=== PATIENT | female | born 2000 | race Caucasian/White ===

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

== ENCOUNTER 2022-01-05 13:58 | Emergency (ER) | payer BC ==
[~2022-01-05] VITALS: Ht 162.5 cm; Wt 44.2 kg
[2022-01-05] MEDS ORDERED: NS IV 1000 ML 1,000 ML IV STA (14:05)
[2022-01-05] MEDS ORDERED: diphenhydrAMINE 50 MG/ML INJ (BENADRYL) IV STA (14:05)
--- NOTE | 2022-01-05 14:11 | ED General ---
General Chief Complaint: Allergic Reaction Stated Complaint: WASP STING DIZZY/SOA History of Present Illness Date Seen by Provider: Jan 05, 2022 Time Seen by Provider: 14:07 Initial Comments 21-year-old female was concerned about allergic reaction. Patient reports that 1520 minutes prior to arrival she got bit by a wasp on the posterior aspect of her right knee. Patient is concerned because her mom is allergic to wasp. She feels like she is a little dizzy short of breath very anxious about it. Patient does not have a localized reaction where the sting was. Maybe some mild nausea. Allergies and Home Medications Allergies Coded Allergies: No Known Drug Allergies (Unverified , 02/04/21) Patient Home Medication List Home Medication List Reviewed: Yes Metoprolol Succinate (Metoprolol Succinate) 25 Mg Tab.er.24h, 25 MG PO DAILY Prescribed by: BRITTANY JURADO on 02/04/21 9614 Review of Systems Review of Systems Constitutional: No chills; dizziness; No fever EENTM: see HPI Respiratory: see HPI Cardiovascular: no symptoms reported Gastrointestinal: No abdominal pain; nausea; No vomiting Musculoskeletal: no symptoms reported Skin: see HPI Psychiatric/Neurological: No Symptoms Reported Past Ehofhps-Rvezes-Mhcvaq Hx Past Medical History Surgeries: No Cardiac: Yes Irregular Heartbeat, Palpitations Neurological: No Physical Exam Vital Signs Vital Signs - First Documented 01/05/22 14:05 Temp 36.1 Pulse 107 Resp 18 B/P (MAP) 144/63 (90) Pulse Ox 97 O2 Delivery Room Air Capillary Refill : Height, Weight, BMI Height: '" Weight: lbs. oz. kg; 16.00 BMI Method: General Appearance: No Apparent Distress, Anxious HEENT: PERRL/EOMI, Pharynx Normal, Moist Mucous Membranes Neck: Non Tender Respiratory: Lungs Clear, Normal Breath Sounds, No Accessory Muscle Use, No Respiratory Distress; No Decreased Breath Sounds, No Wheezing Cardiovascular: Regular Rate, Rhythm, No Edema Gastrointestinal: Non Tender, Soft Extremity: Normal Capillary Refill, Normal Inspection, Normal Range of Motion Neurologic/Psychiatric: Alert, Oriented x3, No Motor/Sensory Deficits, Normal Mood/Affect, instructional aide II-XII Norm as Tested Skin: Normal Color, Warm/Dry, Other (Small bite/sting on posterior right knee but no localized reaction noted) Progress/Results/Core Measures Suspected Sepsis SIRS Temperature: Pulse: Respiratory Rate: Blood Pressure / Mean: Results/Orders My Orders Orders - AMINTA LONDON DO Ns Iv 1000 Ml (Sodium Chloride 0.9%) (01/05/22 14:05) Ed Iv/Invasive Line Start (01/05/22 14:05) Diphenhydramine Injection (Benadryl Inje (01/05/22 14:05) Dexamethasone Injection (Decadron Inje (01/05/22 14:15) Medications Given in ED Current Medications Medications Dose Ordered Sig/Sunni Route Start Time Stop Time Status Last Admin Dose Admin Dexamethasone Sodium Phosphate 10 mg ONCE ONCE IV 01/05/22 14:15 01/05/22 14:16 DC 01/05/22 14:12 10 MG Vital Signs/I&O 01/05/22 14:05 Temp 36.1 Pulse 107 Resp 18 B/P (MAP) 144/63 (90) Pulse Ox 97 O2 Delivery Room Air Capillary Refill : Progress Note : Progress Note Patient's symptoms are much more consistent with mild anxiety and hyperventilation than actual anaphylactic reaction. I did however give her Benadryl IV fluids and steroid as a precaution. Patient was monitored with no reaction. Patient reports that she is ready be discharged home. I have recommended patient be watched for additional 30 to 45 minutes prior to when she requested discharge. However she feels like she is okay to be discharged home and I will discharge her as requested. Departure Impression Primary Impression: Sting from hornet, wasp, or bee Qualified Codes: T63.451A - Toxic effect of venom of hornets, accidental (unintentional), initial encounter; T63.441A - Toxic effect of venom of bees, accidental (unintentional), initial encounter; T63.461A - Toxic effect of venom of wasps, accidental (unintentional), initial encounter Disposition: 01 HOME, SELF-CARE Condition: Stable Departure-Patient Inst. Referrals: YADIRA MERCADO MD (PCP/Family) Primary Care Physician Patient Instructions: Insect Bites and Stings Add. Discharge Instructions: Benadryl as needed for any itching, rash Return to the ER with any throat swelling, repeated nausea and vomiting or any other concerns. All discharge instructions reviewed with patient and/or family. Voiced understanding. AMINTA LONDON DO Jan 05, 2022 14:11
[2022-01-05 14:53] VITALS: BP 145/57
== END 2022-01-05 14:53 | disposition home or self-care (01) ==
LOC: EDUNIT# 13:58 → ER FS 14:00
DX: T63.451A Toxic effect of venom of hornets, accidental (unintentional), initial encounter (principal); T63.461A Toxic effect of venom of wasps, accidental (unintentional), initial encounter; T63.441A Toxic effect of venom of bees, accidental (unintentional), initial encounter; Z28.310 Unvaccinated for COVID-19

== ENCOUNTER → 2022-01-15 | Outpatient (CLI) | payer BC ==
[2022-01-15 10:48] LABS: BASOPHILS # (AUTO) 0.1 10^3/uL (0.0-0.1); BASOPHILS % (AUTO) 1 % (0-10); EOSINOPHILS # (AUTO) 0.1 10^3/uL (0.0-0.3); EOSINOPHILS % (AUTO) 2 % (0-10); HEMATOCRIT 35 % (35-52); HEMOGLOBIN 12.1 g/dL (11.5-16.0); LYMPHOCYTES # (AUTO) 1.9 10^3/uL (1.0-4.0); LYMPHOCYTES % (AUTO) 35 % (12-44); MEAN CORPUSCULAR HEMOGLOBIN 31 pg (25-34); MEAN CORPUSCULAR HGB CONC 35 g/dL (32-36); MEAN CORPUSCULAR VOLUME 89 fL (80-99); MEAN PLATELET VOLUME 10.9 fL (9.0-12.2); MONOCYTES # (AUTO) 0.7 10^3/uL (0.0-1.0); MONOCYTES % (AUTO) 13 % (0-12); NEUTROPHILS # (AUTO) 2.7 10^3/uL (1.8-7.8); NEUTROPHILS % (AUTO) 50 % (42-75); PLATELET COUNT 158 10^3/uL (130-400); WHITE BLOOD COUNT 5.4 10^3/uL (4.3-11.0)
[2022-01-15 11:53] LABS: ALBUMIN 4.4 GM/DL (3.2-4.5); BILIRUBIN,TOTAL 0.9 MG/DL (0.1-1.0); CALCIUM 9.3 MG/DL (8.5-10.1); CREATININE SERUM 0.78 MG/DL (0.60-1.30); POTASSIUM 4.2 MMOL/L (3.6-5.0); TOTAL PROTEIN 7.3 GM/DL (6.4-8.2)
== END ==
LOC: LAB FS 10:33
PROVIDERS: ATTEND Registered Nurse Emergency
DX: R10.9 Unspecified abdominal pain (principal)
CPT/HCPCS: 36415; 80053; 83690; 85025

== ENCOUNTER → 2022-01-15 | Outpatient (CLI) | payer BC | LOC: LABNPT 14:50 | PROVIDERS: ATTEND Registered Nurse Emergency | DX: N39.0 Urinary tract infection, site not specified (principal) | CPT/HCPCS: 87088 ==

== ENCOUNTER → 2022-03-14 | Outpatient (CLI) | payer BC, OTHER ==
[2022-03-14 11:54] LABS: BASOPHILS % (AUTO) 1 % (0-10); EOSINOPHILS # (AUTO) 0.1 10^3/uL (0.0-0.3); EOSINOPHILS % (AUTO) 2 % (0-10); HEMATOCRIT 36 % (35-52); HEMOGLOBIN 12.6 g/dL (11.5-16.0); LYMPHOCYTES # (AUTO) 1.3 10^3/uL (1.0-4.0); LYMPHOCYTES % (AUTO) 32 % (12-44); MEAN CORPUSCULAR HEMOGLOBIN 32 pg (25-34); MEAN CORPUSCULAR HGB CONC 35 g/dL (32-36); MEAN CORPUSCULAR VOLUME 90 fL (80-99); MONOCYTES # (AUTO) 0.5 10^3/uL (0.0-1.0); MONOCYTES % (AUTO) 12 % (0-12); NEUTROPHILS # (AUTO) 2.2 10^3/uL (1.8-7.8); NEUTROPHILS % (AUTO) 54 % (42-75); PLATELET COUNT 141 10^3/uL (130-400); WHITE BLOOD COUNT 4.1 10^3/uL (4.3-11.0)
[2022-03-14 12:21] LABS: ERYTHROCYTE SEDIMENTATION RATE 10 MM/HR (0-20)
[2022-03-14 12:22] LABS: ALANINE AMINOTRANSFERASE 6 U/L (0-55); ALBUMIN 4.6 GM/DL (3.2-4.5); ALKALINE PHOSPHATASE 51 U/L (40-136); BILIRUBIN,TOTAL 0.8 MG/DL (0.1-1.0); BUN/CREATININE RATIO 11; CALCIUM 9.5 MG/DL (8.5-10.1); CARBON DIOXIDE 21 MMOL/L (21-32); CHLORIDE 106 MMOL/L (98-107); CREATININE SERUM 0.74 MG/DL (0.60-1.30); GFR ESTIMATED 119; GLUCOSE 81 MG/DL (70-105); POTASSIUM 4.3 MMOL/L (3.6-5.0); SODIUM 139 MMOL/L (135-145); TOTAL PROTEIN 7.9 GM/DL (6.4-8.2)
[2022-03-14 15:26] LABS: FREE T4 (FREE THYROXINE) 1.04 NG/DL (0.70-1.48)
== END ==
LOC: LAB FS 10:42
PROVIDERS: ATTEND Registered Nurse Emergency
DX: N96 Recurrent pregnancy loss (principal); G44.52 New daily persistent headache (NDPH); E55.9 Vitamin D deficiency, unspecified; R53.83 Other fatigue; R00.2 Palpitations
CPT/HCPCS: 36415; 80053; 82306; 82607; 84439; 84443; 85025; 85610; 85652; 85705; 85730; 86038; 86039; 86147; 86200

== ENCOUNTER → 2022-03-24 | Outpatient (CLI) | payer BC, OTHER ==
--- NOTE | 2022-03-24 09:34 | Diagnostic Imaging Report ---
PROCEDURE: MR imaging of the brain without contrast. TECHNIQUE: Multiplanar, multisequence MR imaging of the brain was performed without contrast. INDICATION: Hearing and vision loss. COMPARISON: None. FINDINGS: No abnormal intracranial signal. No restricted water diffusion. No hemosiderin deposition or evidence of intracranial hemorrhage. Normal morphology including the major midline structures, sella, posterior fossa and cerebellar pontine angle. Normal intracranial flow voids. No hydrocephalus or extra-axial fluid collections. The orbits are negative. Paranasal sinuses and mastoids are clear. Normal bone marrow signal. IMPRESSION: Normal MRI of the brain without contrast. No acute findings. Dictated by: Dictated on workstation # [id number]
== END ==
LOC: RAD 07:36
PROVIDERS: ATTEND Registered Nurse Emergency
DX: R00.2 Palpitations (principal); G44.52 New daily persistent headache (NDPH); H91.90 Unspecified hearing loss, unspecified ear; H54.7 Unspecified visual loss
CPT/HCPCS: 70551; C8929; 93306

== ENCOUNTER → 2022-04-07 | Outpatient (CLI) | payer BC, OTHER ==
[~2022-04-07] MED LIST changes: +CATHETER FLUSH 10 ML SYR IVP PRN
--- NOTE | 2022-04-07 14:55 | Diagnostic Imaging Report ---
INDICATION: Unspecified abdominal pain. EXAMINATION: HIDA scan 04/07/2022 FINDINGS: After uneventful administration of 5.43 mCi of technetium mebrofenin intravenously, subsequent imaging is performed. There is prompt homogeneous uptake throughout the liver. Gallbladder and small bowel seen within less than 60 minutes. Subsequently administration of 8 ounces of Ensure administered orally with continued imaging performed. Ejection fraction is calculated at 28.5%. IMPRESSION: 1. No obstructive process. 2. Low ejection fraction of 28.5% suggestive of gallbladder dyskinesia versus chronic cholecystitis. Correlate with patient's symptoms. Dictated by: Dictated on workstation # [id number]
== END ==
LOC: CARD 09:21
PROVIDERS: ATTEND Registered Nurse Emergency
DX: R10.9 Unspecified abdominal pain (principal)
CPT/HCPCS: 78227; A9537

== ENCOUNTER 2022-04-24 21:19 | Emergency (ER) | payer BC, OTHER ==
[~2022-04-24] VITALS: Ht 162.5 cm; Wt 43.3 kg
[~2022-04-24 21:19] MED LIST changes: -CATHETER FLUSH 10 ML SYR IVP PRN
[2022-04-24] MEDS ORDERED: PANTOPRAZOLE 40 MG (PROTONIX) VIAL IV STA (21:36)
[2022-04-24] MEDS ORDERED: fentaNYL INJ 100 MCG/2 ML AMP IVP STA (21:36)
[2022-04-24] MEDS ORDERED: KETOROLAC 15 MG/ML VIAL IVP STA (21:36)
[2022-04-24] MEDS ORDERED: NS IV 1000 ML 1,000 ML IV STA (21:36)
[2022-04-24 21:42] LABS: BASOPHILS % (AUTO) 1 % (0-10); EOSINOPHILS # (AUTO) 0.1 10^3/uL (0.0-0.3); EOSINOPHILS % (AUTO) 2 % (0-10); HEMATOCRIT 34 % (35-52); HEMOGLOBIN 11.7 g/dL (11.5-16.0); LYMPHOCYTES # (AUTO) 1.7 10^3/uL (1.0-4.0); LYMPHOCYTES % (AUTO) 36 % (12-44); MEAN CORPUSCULAR HEMOGLOBIN 31 pg (25-34); MEAN CORPUSCULAR HGB CONC 35 g/dL (32-36); MEAN CORPUSCULAR VOLUME 89 fL (80-99); MEAN PLATELET VOLUME 10.7 fL (9.0-12.2); MONOCYTES # (AUTO) 0.6 10^3/uL (0.0-1.0); MONOCYTES % (AUTO) 12 % (0-12); NEUTROPHILS # (AUTO) 2.4 10^3/uL (1.8-7.8); NEUTROPHILS % (AUTO) 50 % (42-75); PLATELET COUNT 142 10^3/uL (130-400); WHITE BLOOD COUNT 4.8 10^3/uL (4.3-11.0)
[2022-04-24] MEDS ORDERED: CATHETER FLUSH 10 ML SYR IV PRN (21:45)
[2022-04-24] MEDS ORDERED: HOLD METFORMIN - RECEIVED CONTRAST 20 ML VIAL IV SCH (21:45)
[2022-04-24] MEDS ORDERED: IOHEXOL 350 MG/ML 100 ML (OMNIPAQUE 350) VIAL IV ONE (21:45)
[2022-04-24] MEDS ORDERED: NS 100 ML (IVPB) BAG IV ONE (21:45)
--- NOTE | 2022-04-24 21:54 | ED Abdominal Pain ---
General Chief Complaint: Abdominal/GI Problems Stated Complaint: PAIN AT SURGERY SITE Source of Information: Patient, Family History of Present Illness Date Seen by Provider: Apr 24, 2022 Time Seen by Provider: 21:23 Initial Comments 21-year-old female presenting with complaints of abdominal pain around the periumbilical surgery site. She is 2 days postop from laparoscopic cholecystectomy done at [facility]. She has had some mild intermittent nausea. She has not had a bowel movement since surgery. She has been taking Percocet for pain. She had eaten about 20 to 30 minutes prior to the onset of pain. She denies having fever, chills, drainage from incision sites, vomiting, chest pain, pain with urination. She did not take any of her pain medicine prior to coming to the emergency department. Her abdominal pain started approximately 30 minutes prior to arrival in the ED. Timing/Duration: 1/2 Hour Severity/Quality: Severe Location: Periumbilical Radiation: No Radiation Activities at Onset: Other (Has just eaten about 20 minutes prior to onset of pain) Modifying Factors: Worsens With Eating Associated Symptoms: No Back Pain, No Chest Pain, No Diaphoresis, No Fever/Chills; Fatigue; No Headache, No Heartburn; Nausea/Vomiting (Nausea but no vomiting); No Rash, No Shortness of Air, No Swelling/Mass in Abdomen, No Syncope, No Weakness Allergies and Home Medications Allergies Coded Allergies: No Known Drug Allergies (Unverified , 02/04/21) Patient Home Medication List Home Medication List Reviewed: Yes Metoprolol Succinate (Metoprolol Succinate) 25 Mg Tab.er.24h, 25 MG PO DAILY Prescribed by: BRITTANY JURADO on 02/04/21 [id number] Review of Systems Review of Systems Constitutional: No chills, No fever EENTM: No Symptoms Reported Respiratory: No Symptoms Reported Cardiovascular: No Symptoms Reported Gastrointestinal: See HPI Genitourinary: No Symptoms Reported Musculoskeletal: no symptoms reported Skin: other (Laparoscopic cholecystectomy surgery sites are intact with glue in place and no erythema or drainage or fluctuance or induration to indicate infection) Psychiatric/Neurological: Anxiety Endocrine: No Symptoms Reported Hematologic/Lymphatic: No Symptoms Reported Past Ojretnc-Qortgg-Jtvbye Hx Patient Social History Tobacco Use?: No Use of E-Cig and/or Vaping dev: No Substance use?: No Alcohol Use?: No Past Medical History Surgery/Hospitalization HX: None Surgeries: Yes Gallbladder (Laparoscopic cholecystectomy April 22, 2022) Cardiac: Yes Irregular Heartbeat, Palpitations Neurological: No Physical Exam Vital Signs Vital Signs - First Documented 04/24/22 21:25 Temp 36.4 Pulse 101 Resp 16 B/P (MAP) 136/83 (100) Pulse Ox 99 O2 Delivery Room Air Capillary Refill : Height/Weight/BMI Height: '" Weight: lbs. oz. kg; 16.00 BMI Method: General Appearance: moderate distress HEENT: PERRL/EOMI, pharynx normal Neck: non-tender, full range of motion, supple, normal inspection Respiratory: chest non-tender, lungs clear, normal breath sounds, no respiratory distress, no accessory muscle use Cardiovascular: normal peripheral pulses, regular rate, rhythm Gastrointestinal: soft, no pulsatile mass; No abnormal bowel sounds (hypoactive bowel sounds), No distended; guarding; No rebound; tenderness (periumbilical and around each lap ana lilia incision site) Rectal: deferred Extremities: normal range of motion, non-tender, normal capillary refill Neurologic/Psychiatric: alert, oriented x 3, other (anxious) Skin: normal color, warm/dry Progress/Results/Core Measures Results/Orders Lab Results Laboratory Tests Test 04/24/22 21:40 04/24/22 23:15 Range/Units White Blood Count 4.8 4.3-11.0 10^3/uL Red Blood Count 3.75 L 3.80-5.11 10^6/uL Hemoglobin 11.7 11.5-16.0 g/dL Hematocrit 34 L 35-52 % Mean Corpuscular Volume 89 80-99 fL Mean Corpuscular Hemoglobin 31 25-34 pg Mean Corpuscular Hemoglobin Concent 35 32-36 g/dL Red Cell Distribution Width 11.9 10.0-14.5 % Platelet Count 142 130-400 10^3/uL Mean Platelet Volume 10.7 9.0-12.2 fL Immature Granulocyte % (Auto) 0 % Neutrophils (%) (Auto) 50 42-75 % Lymphocytes (%) (Auto) 36 12-44 % Monocytes (%) (Auto) 12 0-12 % Eosinophils (%) (Auto) 2 0-10 % Basophils (%) (Auto) 1 0-10 % Neutrophils # (Auto) 2.4 1.8-7.8 10^3/uL Lymphocytes # (Auto) 1.7 1.0-4.0 10^3/uL Monocytes # (Auto) 0.6 0.0-1.0 10^3/uL Eosinophils # (Auto) 0.1 0.0-0.3 10^3/uL Basophils # (Auto) 0.0 0.0-0.1 10^3/uL Immature Granulocyte # (Auto) 0.0 0.0-0.1 10^3/uL Sodium Level 138 135-145 MMOL/L Potassium Level 3.5 L 3.6-5.0 MMOL/L Chloride Level 105 98-107 MMOL/L Carbon Dioxide Level 22 21-32 MMOL/L Anion Gap 11 5-14 MMOL/L Blood Urea Nitrogen 8 7-18 MG/DL Creatinine 0.64 0.60-1.30 MG/DL Estimat Glomerular Filtration Rate 130 BUN/Creatinine Ratio 13 Glucose Level 107 H 70-105 MG/DL Calcium Level 9.3 8.5-10.1 MG/DL Corrected Calcium 9.3 8.5-10.1 MG/DL Total Bilirubin 0.3 0.1-1.0 MG/DL Aspartate Amino Transf (AST/SGOT) 64 H 5-34 U/L Alanine Aminotransferase (ALT/SGPT) 47 0-55 U/L Alkaline Phosphatase 45 40-136 U/L Total Protein 7.1 6.4-8.2 GM/DL Albumin 4.0 3.2-4.5 GM/DL Lipase 53 8-78 U/L Serum Test, Qualitative NEGATIVE NEGATIVE Urine Color YELLOW Urine Clarity TURBID Urine pH 7.0 5-9 Urine Specific [place] 1.010 L 1.016-1.022 Urine Protein NEGATIVE NEGATIVE Urine Glucose (UA) NEGATIVE NEGATIVE Urine Ketones NEGATIVE NEGATIVE Urine Nitrite NEGATIVE NEGATIVE Urine Bilirubin NEGATIVE NEGATIVE Urine Urobilinogen 1.0 < = 1.0 MG/DL Urine Leukocyte Esterase NEGATIVE NEGATIVE Urine RBC (Auto) 3+ H NEGATIVE Urine RBC 25-50 H /HPF Urine WBC RARE /HPF Urine Squamous Epithelial Cells 0-2 /HPF Urine Crystals PRESENT H /LPF Urine Amorphous Sediment LARGE MICKI PHOSPHATE H /LPF Urine Bacteria NEGATIVE /HPF Urine Casts NONE /LPF Urine Mucus LARGE H /LPF Urine Culture Indicated NO My Orders Orders - SHEYLA SANCHEZ MD Comprehensive Metabolic Panel (04/24/22 21:35) Lipase (04/24/22 21:35) Ua Culture If Indicated (04/24/22 21:35) Ed Iv/Invasive Line Start (04/24/22 21:35) Cbc With Automated Diff (04/24/22 21:35) Ct Abdomen/Pelvis W (04/24/22 21:35) Ns Iv 1000 Ml (Sodium Chloride 0.9%) (04/24/22 21:36) Pantoprazole Injection (Protonix Injecti (04/24/22 21:36) Ketorolac Injection (Toradol Injection) (04/24/22 21:36) Fentanyl Inj (Sublimaze Injection) (04/24/22 21:36) Iohexol Injection (Omnipaque 350 Mg/Ml 1 (04/24/22 21:45) Received Contrast (Hold Metformin- Contr (04/24/22 21:45) Sodium Chloride Flush (Catheter Flush Sy (04/24/22 21:45) Ns (Ivpb) (Sodium Chloride 0.9% Ivpb Bag (04/24/22 21:45) Hcg,Qualitative Serum (04/24/22 22:41) Medications Given in ED Current Medications Medications Dose Ordered Sig/Sunni Route Start Time Stop Time Status Last Admin Dose Admin Iohexol 75 ml ONCE ONCE IV 04/24/22 21:45 04/24/22 21:46 DC 04/24/22 23:09 75 ML Sodium Chloride 10 ml NEEDED PRN IV 04/24/22 21:45 04/25/22 00:07 DC 04/24/22 23:10 10 ML Sodium Chloride 100 ml ONCE ONCE IV 04/24/22 21:45 04/24/22 21:46 DC 04/24/22 23:09 65 ML Vital Signs/I&O 04/24/22 04/25/22 21:25 00:03 Temp 36.4 Pulse 101 90 Resp 16 16 B/P (MAP) 136/83 (100) 136/83 Pulse Ox 99 99 O2 Delivery Room Air Room Air 04/25/22 00:00 Intake Total 1000 ml Balance 1000 ml Progress Progress Note #1: Progress Note Obtain labs and order CT scan of the abdomen pelvis to evaluate for possible abscess or post op complication. Give normal saline 1 L IV fluid bolus for hydration, fentanyl IV for severe pain. Progress Note #2: Progress Note CBC and chemistry are stable without acute significant normality. Urinalysis does not show signs of infection. Patient's pain was improved with treatment. Awaiting CT scan. Progress Note #3: Progress Note CT scan shows postoperative changes but no acute significant abnormality. With patient's pain doing better encouraged to take a laxative to help with constipation. She did have an episode of vomiting after becoming very anxious while waiting to get discharged. Again this seemed to help with her pain. Stressed importance of using the MiraLAX or laxatives to help overcome the narcotic effect of causing constipation. Counseled on follow-up and return precautions. Diagnostic Imaging Diagonstic Imaging: CT Plain Films/CT/US/NM/MRI: abdomen, pelvis Comments CT abdomen pelvis with IV contrast: Impression: 1. There is pneumoperitoneum throughout the superior abdomen, predominantly surrounding the liver. This is presumed related to recent laparoscopic cholecystectomy. 2. Status postcholecystectomy. No biliary ductal dilatation. There is minimal residual fat stranding in the bailee hepatis without an organized fluid collection noted. 3. There is mild low-density free fluid noted in the dependent pelvis. No perihepatic free fluid noted. This may be related to residual fluid in the pelvis from recent surgical procedure. However, if there is concern for bile leak repeat hepatobiliary nuclear medicine imaging is recommended. 4. No bowel obstruction. No asymmetric bowel mucosal abnormality. Read by radiologist Dr. Se Bender MD at [phone] and faxed at [phone] Reviewed: Reviewed Night [facility] Study Departure Impression Primary Impression: Abdominal pain Qualified Codes: R10.33 - Periumbilical pain Additional Impressions: S/P laparoscopic cholecystectomy Constipation Qualified Codes: K59.03 - Drug induced constipation Disposition: 01 HOME, SELF-CARE Condition: Stable Departure-Patient Inst. Decision time for Depature: 23:56 Referrals: YADIRA MERCADO MD (PCP/Family) Primary Care Physician Patient Instructions: Abdominal Pain, Adult ED, Cholecystectomy, Laparoscopic Surgery, Constipation, Adult ED Add. Discharge Instructions: Try to stay well-hydrated and drink plenty of fluids. Take MiraLAX [id number] to help with constipation. He would take 1 capful or 17 g mixed in 8 ounces of water or juice. Take this at least once a day to try and help with constipation. Check back with the surgeon for continued concerns. All discharge instructions reviewed with patient and/or family. Voiced understanding. SHEYLA SANCHEZ MD Apr 24, 2022 21:54
[2022-04-24 22:20] LABS: BILIRUBIN,TOTAL 0.3 MG/DL (0.1-1.0); CALCIUM 9.3 MG/DL (8.5-10.1); CREATININE SERUM 0.64 MG/DL (0.60-1.30); POTASSIUM 3.5 MMOL/L (3.6-5.0)
[2022-04-24 22:21] LABS: TOTAL PROTEIN 7.1 GM/DL (6.4-8.2)
[2022-04-24 23:26] LABS: BILIRUBIN,URINE NEGATIVE (NEGATIVE); CLARITY,URINE TURBID; COLOR,URINE YELLOW; GLUCOSE, URINE (UA) NEGATIVE (NEGATIVE); KETONES,URINE NEGATIVE (NEGATIVE); LEUKOCYTE ESTERASE ,URINE NEGATIVE (NEGATIVE); NITRITE,URINE NEGATIVE (NEGATIVE); PROTEIN,URINE NEGATIVE (NEGATIVE)
[2022-04-24 23:36] LABS: AMORPHOUS SEDIMENT,UR LARGE AMOR PHOSPHATE /LPF; BACTERIA,URINE NEGATIVE /HPF; RBC,URINE 25-50 /HPF; SQUAMOUS EPITHELIAL CELL,UR 0-2 /HPF; WBC,URINE RARE /HPF
[2022-04-25 00:03] VITALS: BP 136/83
--- NOTE | 2022-04-25 08:29 | Diagnostic Imaging Report ---
EXAMINATION: CT abdomen and pelvis with intravenous contrast. TECHNIQUE: Multiple contiguous axial images were obtained through the abdomen and pelvis after the uneventful administration of intravenous contrast. All CT scans use one or more of the following dose optimizing techniques: automated exposure control, MA and/or KvP adjustment based on patient size and exam type or iterative reconstruction. HISTORY: periumbilical pain x 30 min, s/p lap ana lilia 04/22 COMPARISON: None available. FINDINGS: Lung bases: The lung bases are clear. Solid organs: The liver is normal without focal lesion. The gallbladder is surgically absent. There is no biliary ductal dilation. Pancreas is normal. Spleen is normal. Adrenal glands are normal. The kidneys are normal without hydronephrosis. Bowel: The stomach and small bowel are normal without obstruction. Colon is unremarkable. No findings of acute appendicitis. Peritoneum: A mild amount of free fluid is seen within the gallbladder fossa as well as within the pelvis. There are scattered foci of free air within the abdomen. No loculated fluid collection is seen. No suspicious lymphadenopathy. Vasculature: Normal without aneurysm. Musculoskeletal: No suspicious osseous lesion or compression fracture. Pelvis: The uterus and adnexa are normal. The urinary bladder is normal. IMPRESSION: 1. Free air and free fluid within the abdomen and pelvis. Given recent surgery on 04/22/2022, this finding could be postoperative but the amount of fluid may be greater than expected in the postoperative setting, raising concern for bile leak. This could be further evaluated with HIDA scan. 2. Agree with preliminary interpretation. Dictated by: Dictated on workstation # [id number]
== END 2022-04-25 00:06 | disposition home or self-care (01) ==
LOC: EDUNIT# 21:19 → ER FS 21:21
DX: K59.00 Constipation, unspecified (principal); Z90.49 Acquired absence of other specified parts of digestive tract; Z32.02 Encounter for pregnancy test, result negative; Z28.310 Unvaccinated for COVID-19
CPT/HCPCS: 36415; 74177; 80053; 81000; 83690; 84703; 85025

== ENCOUNTER → 2022-05-08 | Outpatient (CLI) | payer BC, OTHER ==
[2022-05-08 12:32] LABS: HEMATOCRIT 38 % (35-52); HEMOGLOBIN 12.7 g/dL (11.5-16.0); MEAN CORPUSCULAR HEMOGLOBIN 31 pg (25-34); MEAN CORPUSCULAR HGB CONC 33 g/dL (32-36); MEAN CORPUSCULAR VOLUME 93 fL (80-99); PLATELET COUNT 181 10^3/uL (130-400); WHITE BLOOD COUNT 3.7 10^3/uL (4.3-11.0)
[2022-05-08 12:33] LABS: MEAN PLATELET VOLUME 11.9 fL (9.0-12.2)
[2022-05-08 13:11] LABS: ERYTHROCYTE SEDIMENTATION RATE 10 MM/HR (0-20)
[2022-05-08 15:26] LABS: CHLORIDE 107 MMOL/L (98-107); POTASSIUM 4.2 MMOL/L (3.6-5.0); SODIUM 141 MMOL/L (135-145)
[2022-05-08 15:27] LABS: ALANINE AMINOTRANSFERASE 12 U/L (0-55); ALBUMIN 4.7 GM/DL (3.2-4.5); ALKALINE PHOSPHATASE 57 U/L (40-136); BILIRUBIN,TOTAL 0.7 MG/DL (0.1-1.0); BUN/CREATININE RATIO 13; CALCIUM 9.6 MG/DL (8.5-10.1); CARBON DIOXIDE 24 MMOL/L (21-32); CREATININE SERUM 0.67 MG/DL (0.60-1.30); GFR ESTIMATED 129; GLUCOSE 88 MG/DL (70-105); TOTAL PROTEIN 8.2 GM/DL (6.4-8.2)
== END ==
LOC: LAB FS 12:04
PROVIDERS: ATTEND Internal Medicine Cardiovascular Disease
DX: R55 Syncope and collapse (principal); R00.2 Palpitations; R07.89 Other chest pain
CPT/HCPCS: 36415; 80053; 84443; 85027; 85652; 86141

== ENCOUNTER → 2022-05-13 | Outpatient (CLI) | payer BC, OTHER ==
[2022-05-13 11:32] VITALS: BP 118/78
== END ==
LOC: CARD 10:28
PROVIDERS: ATTEND Internal Medicine Cardiovascular Disease
DX: R07.89 Other chest pain (principal)
CPT/HCPCS: 93017

== ENCOUNTER → 2022-05-14 | Outpatient (CLI) | payer BC, OTHER | LOC: GIR 17:47 | PROVIDERS: ATTEND Registered Nurse Emergency | DX: B37.31 Acute candidiasis of vulva and vagina (principal) | CPT/HCPCS: 87210 ==

== ENCOUNTER → 2022-09-02 | Outpatient (CLI) | payer BC, OTHER | LOC: LAB 12:33 | PROVIDERS: ATTEND Registered Nurse Emergency | DX: N89.8 Other specified noninflammatory disorders of vagina (principal) | CPT/HCPCS: 36415; 87210; 87491; 87591 ==